=== PATIENT | female | born 1995 | race Two or more races ===

== ENCOUNTER 2020-05-27 | Emergency (ER) | payer SELFPAY ==
[2020-05-26 23:57] VITALS: BP 133/84
[~2020-05-27] VITALS: Ht 162.6 cm; Wt 104.3 kg
--- NOTE | 2020-05-27 00:05 | NUR ---
Patient run out of the ER right after placed in the room by RA 61.
--- NOTE | 2020-05-27 00:12 | Emergency Room Report ---
History of Present Illness General Chief Complaint: To Be Triaged Source: Patient Present Illness HPI This is a 25-year-old female brought in by EMS with chief complaint of altered mental status. Bystander called 911 because she appeared confused. EMS, she says she does not remember her last name. She says she lives in [place]. They brought her here and place her in her room. Afterwards she got up and ran out of the ER. I did not get to see this patient. Allergies: Coded Allergies: No Known Allergies (Unverified , 05/26/20) COVID-19 Screening Contact w/high risk pt: No Experienced COVID-19 symptoms?: No COVID-19 Testing performed HARBOR PILOT: No Patient History Past Medical History: see triage record, old chart reviewed, unable to obtain Past Surgical History: unable to obtain Pertinent Family History: unable to obtain Last Menstrual Period: unk Immunizations: other Reviewed Nursing Documentation: PMH: Agreed; PSxH: Agreed Nursing Documentation-PMH Past Medical History: No Stated History Physical Exam Vital Signs Date Time Temp Pulse Resp B/P (MAP) Pulse Ox O2 Delivery O2 Flow Rate FiO2 05/26/20 23:57 98.6 105 16 133/84 (100) 96 Room Air Medical Decision Making Diagnostic Impression: Primary Impression: Altered behavior Last Vital Signs Date Time Temp Pulse Resp B/P (MAP) Pulse Ox O2 Delivery O2 Flow Rate FiO2 05/26/20 23:57 98.6 105 16 133/84 (100) 96 Room Air Disposition: ELOPED Condition: Stable Angel Boston MD May 27, 2020 00:12
== END 2020-05-27 00:40 | disposition left against medical advice (07) ==
LOC: EDBD → EMR 00:32
DX: R41.82 Altered mental status, unspecified (principal)
CPT/HCPCS: 99282